=== PATIENT | male | born 1985 | race African-American/Black ===

== ENCOUNTER 2021-08-08 10:09 | Inpatient (IN) | payer SELFPAY ==
--- OUTSIDE RECORDS SUMMARY | 2021-08-08 10:16 | XMS REPORT | Continuity of Care Document ---
:1985 Author Organization [facility] t Address [facility] [address] Tony [address] [place] [id number] Care Team Providers Name Role Phone Unavailable Unavailable Unavailable Problems This patient has no known problems. Allergies, Adverse Reactions, Alerts This patient has no known allergies or adverse reactions. Medications This patient has no known medications. Procedures This patient has no known procedures. Encounters Start End Encounter Admission Attending Care Care Encounter Source Date/Time Date/Time Type Type Clinicians Facility Department ID 2018-10-07 2018-10-07 Emergency [facility] [id number] 2 Antonio 17:05:06 17:05:06 Health Results This patient has no known results.
[2021-08-08 10:38] LABS: Absolute Lymphocytes (CBC) 1.1 K/uL (0.7-4.9); Basophils % 0.1 % (0-1.3); Hematocrit 40.3 % (39.6-49.0); Lymphocytes % 4.1 % (15.3-44.8); MPV 7.6 fL (7.6-11.3); RBC Red Blood Cell Count 4.43 M/uL (4.33-5.43)
[2021-08-08] MEDS ORDERED: INSULIN -REGULAR HUMAN 50 UNIT/0.5 ML ML ONE ×5 (10:43→21:39)
[2021-08-08 11:01] LABS: Blood Morphology Comment NOT SEEN (NOT SEEN); Platelet Estimate ADEQ
[2021-08-08 11:16] LABS: BUN Blood Urea Nitrogen 23 mg/dL (7-18); Bicarbonate 15 mmol/L (21-32); Potassium 5.2 mmol/L (3.5-5.1); Sodium Level 131 mmol/L (136-145); Troponin (Emerg Dept Use Only) < 0.02 ng/mL (0.0-0.045)
[2021-08-08 11:19] LABS: Glucose Level 534 mg/dL (74-106)
[2021-08-08] MEDS ORDERED: NA CHLORIDE 0.9% 1,000 ML ONE (11:25)
[2021-08-08] MEDS ORDERED: HYDROCODONE/APAP 10/325 TAB ONE (11:25)
--- NOTE | 2021-08-08 11:47 | RAD REPORT ---
EXAM DESCRIPTION: CT - Chest For Pe Angio - 08/08/2021 11:32 am CLINICAL HISTORY: Chest pain COMPARISON: None. TECHNIQUE: Dynamically enhanced axial 3 mm thick images of the chest were obtained during administra tion of <100> mL Isovue 370 IV contrast. Coronal and oblique reconstruction images were generated and reviewed. Exam utilizes a protocol for optimal evaluation of pulmonary arterial tree. Maximum intensity projections 3D imaging was utilized All CT scans are performed using dose optimization technique as appropriate and may include automated exposure control or mA/KV adjustment according to patient size. FINDINGS: The opacification of pulmonary arteries is suboptimal. A thoracic aortic aneurysm is not noted. A pleural effusion is not seen. A pericardial effusion is not seen. 8 centimeter right upper lobe consolidation IMPRESSION: Opacification of pulmonary arteries is suboptimal. Detection for pulmonary embolus it is nondiagnostic 8 centimeter right upper lobe consolidation likely pneumonia. This should be followed until it is genie ar to help exclude a post obstructive process/underlying mass
--- NOTE | 2021-08-08 11:48 | RAD REPORT ---
EXAM DESCRIPTION: Talat Single View08/08/2021 10:48 am CLINICAL HISTORY: Chest pain COMPARISON: none FINDINGS: Right upper lobe consolidation Left lung is clear. The heart is normal size IMPRESSION: Right upper lobe consolidation likely pneumonia
[2021-08-08 12:01] LABS: Arterial Blood Carboxyhemoglob 1.4 % (0-1.5); Blood O2 Saturation 97.5 % (92-98.5)
--- NOTE | 2021-08-08 12:01 | EDPHYS ---
Physician Documentation [facility] Name: Saul Earl Age: 35 yrs Sex: Male : 1985 Arrival Date: 08/08/2021 Time: 10:11 Bed 8 Private MD: ED Physician José Gage HPI: 08/08 10:24 This 35 yrs old Black Male presents to ER via Unassigned with complaints of chest pain. rn 10:24 The patient or guardian reports chest pain that is located primarily in the anterior rn chest wall, right. The pain does not radiate. Associated signs and symptoms: Pertinent positives: cough, Pertinent negatives: abdominal pain, diaphoresis, headache, lower extremity swelling, near syncope, shortness of breath, syncope, vomiting. Associated signs and symptoms: Pertinent negatives: palpitations. The chest pain is described as sharp, stabbing. Duration: The patient or guardian reports multiple episodes, that are intermittent. Modifying factors: The symptoms are alleviated by nothing. the symptoms are aggravated by cough, deep breath, palpation of area. Severity of pain: At its worst the pain was moderate in the emergency department the pain is unchanged. The patient has not experienced similar symptoms in the past. The patient has not recently seen a physician. 10:24 Patient reports a couple days of right-sided chest pain, nonradiating, stabbing pain rn worse with deep breath and palpation. Denies any trauma. Reports productive cough. Denies fever. EMS reports normal oxygenation. Patient denies history of DVT or PE.. Historical: - Allergies: 10:27 No Known Allergies; ll3 - Home Meds: 10:27 Insulin: Novolin 70/30 40-35 U/ML Sub-Q twice a day [Active]; lisinopril 10 mg Oral tab ll3 once daily [Active]; - PMHx: 10:27 Diabetes - NIDDM; Hypertensive disorder; ll3 - Immunization history:: Client reports having NOT received the Covid vaccine. - Social history:: Smoking status: Patient reports the use of cigarette tobacco products, smokes one-half pack cigarettes per day, Patient uses street drugs, marijuana. - Family history:: not pertinent. - Hospitalizations: : No recent hospitalization is reported. ROS: 10:24 Constitutional: Negative for fever, chills, and weight loss, Eyes: Negative for injury, rn pain, redness, and discharge, Neck: Negative for injury, pain, and swelling, Cardiovascular: Negative for palpitations, and edema, Respiratory: Negative for shortness of breath, wheezing Abdomen/GI: Negative for abdominal pain, nausea, vomiting, diarrhea, and constipation, Back: Negative for injury and pain, : Negative for injury, bleeding, discharge, and swelling, MS/Extremity: Negative for injury and deformity, Skin: Negative for injury, rash, and discoloration, Neuro: Negative for headache, weakness, numbness, tingling, and seizure. Exam: 10:24 Constitutional: This is a well developed, well nourished patient who is awake, alert, rn and in no acute distress. Head/Face: Normocephalic, atraumatic. Eyes: Periorbital areas with no swelling, redness, or edema. Cardiovascular: Regular rate and rhythm with a normal S1 and S2. No gallops, murmurs, or rubs. Normal PMI, no JVD. No pulse deficits. Respiratory: No increased work of breathing, no retractions or nasal flaring. Abdomen/GI: Soft, non-tender Skin: Warm, dry MS/ Extremity: Pulses equal, no cyanosis. Neuro: Awake and alert, GCS 15 Vital Signs: 10:18 BP 154 / 92; Pulse 98; Resp 18; Temp 99.7(O); Pulse Ox 100% ; Weight 70.31 kg (R); ll3 Height 5 ft. 10 in. (177.80 cm) (R); Pain 8/10; 10:18 Body Mass Index 22.24 (70.31 kg, 177.80 cm) ll3 MDM: 10:12 Patient medically screened. rn 11:56 Differential diagnosis: acute pericarditis, chest wall pain, costochondritis, rn esophagitis, pleurisy, pneumonia, pneumothorax, pulmonary embolus. Data reviewed: vital signs, nurses notes, lab test result(s), EKG, radiologic studies, CT scan, plain films, and as a result, I will admit patient. Data interpreted: electronic device monitor: rate is 98 beats/min, rhythm is normal sinus rhythm, regular, with no ectopy, Interpretation: normal rate, normal rhythm, Pulse oximetry: on room air is 100 %. Interpretation: normal. Counseling: I had a detailed discussion with the patient and/or guardian regarding: the historical points, exam findings, and any diagnostic results supporting the discharge/admit diagnosis, lab results, radiology results, the need for further work-up and treatment in the hospital. Response to treatment: the patient's symptoms have mildly improved after treatment, and as a result, I will admit patient. Admission orders: after a detailed discussion of the patient's condition and case, the admit orders are written by me. 08/08 10:13 Order name: CBC with Diff; Complete Time: 11:17 rn 08/08 10:13 Order name: Basic Metabolic Panel; Complete Time: 11:32 rn 08/08 10:13 Order name: SARS-COV-2 RT PCR (Document "Date of Onset" if Symptomatic); Complete Time: rn 11:37 08/08 10:13 Order name: Troponin (emerg Dept Use Only); Complete Time: 11:32 08/08 10:36 Order name: Glucose, Ancillary Testing; Complete Time: 10:38 EDNJ 08/08 11:01 Order name: Manual Differential; Complete Time: 11:17 [facility] 08/08 11:21 Order name: ABG 08/08 11:21 Order name: Blood Culture Adult (2) 08/08 11:21 Order name: Procalcitonin; Complete Time: 17:58 08/08 11:21 Order name: Ketone, Serum; Complete Time: 17:58 08/08 12:50 Order name: Glucose, Ancillary Testing [facility] 08/08 13:06 Order name: Hemoglobin A1c [facility] 08/08 13:06 Order name: Hemoglobin A1c [facility] 08/08 10:13 Order name: XRAY Chest (1 view); Complete Time: 11:51 rn 13 10:13 Order name: CT Chest For PE Angio; Complete Time: 11:51 rn 13 13:08 Order name: Urinalysis; Complete Time: 17:58 EDNJ 08/08 13:22 Order name: Basic Metabolic Panel [facility] 08/08 13:22 Order name: Basic Metabolic Panel; Complete Time: 17:58 EDN[facility] 08/08 13:22 Order name: Basic Metabolic Panel [facility] 08/08 13:22 Order name: Basic Metabolic Panel [facility] 08/08 14:49 Order name: Glucose, Ancillary Testing; Complete Time: 17:58 EDN[facility] 08/08 14:56 Order name: Glucose, Ancillary Testing; Complete Time: 17:58 EDNJ 08/08 16:32 Order name: Glucose, Ancillary Testing; Complete Time: 17:58 EDNJ 08/08 17:54 Order name: Glucose, Ancillary Testing; Complete Time: 17:58 EDNJ 08/08 18:45 Order name: Glucose, Ancillary Testing EDN[facility] 08/08 20:03 Order name: Glucose, Ancillary Testing EDN[facility] 08/08 21:39 Order name: Glucose, Ancillary Testing EDN[facility] 08/08 10:13 Order name: IV Start; Complete Time: 10:18 rn 08/08 10:13 Order name: EKG; Complete Time: 10:14 rn 08/08 10:13 Order name: EKG - Nurse/Tech; Complete Time: 10:36 rn 08/08 13:07 Order name: NPO EDMS Administered Medications: 10:50 Drug: Insulin Regular Human 10 units {Co-Signature: iw (Indiana Garcia RN).} Route: ll3 IVP; Site: left antecubital; 12:41 Follow up: Response: No adverse reaction iw 10:50 Drug: Insulin Regular Human 10 units {Co-Signature: iw (Indiana Garcia RN).} Route: ll3 Sub-Q; Site: abdomen; 12:41 Follow up: Response: No adverse reaction iw 12:00 Drug: [place] (HYDROcodone-acetaminophen) 10 mg-325 mg 1 tabs Route: PO; iw 12:41 Follow up: Response: No adverse reaction; Pain is decreased iw 12:01 Drug: NS 0.9% 1000 ml Route: IV; Rate: 1000 ml; Site: left antecubital; ll3 12:40 Drug: Rocephin (cefTRIAXone) 1 grams Route: IV; Rate: calculated rate; Site: right iw antecubital; 14:20 Follow up: Response: No adverse reaction iw 12:40 Drug: Zithromax (azithromycin) 500 mg Route: IVPB; Infused Over: 1 hrs; Site: left iw antecubital; 13:14 Not Given (Dr. Chirag Gage d/c order): Insulin Drip - (Insulin Regular Human 100 units, NS iw 0.9% 100 ml) IV at calculated rate continuous; Standard concentration 1unit/ml; Dose for DKA is 0.1 units/kg/hr Disposition: 11:56 Critical Care:. rn Disposition Summary: 08/08/21 12:00 Hospitalization Ordered Hospitalization Status: Inpatient Admission rn Provider: John Gage rn Condition: Stable rn Problem: new rn Symptoms: have improved rn Bed/Room Type: Standard rn Location: Telemetry/MedSurg (Inpatient)(08/08/21 22:37) cg Room Assignment: 205(08/08/21 22:46) cg Diagnosis - Diabetes mellitus due to underlying condition with ketoacidosis without coma rn - Pneumonia, unspecified organism rn - Pleurisy rn Forms: - Medication Reconciliation Form rn - SBAR form sales and marketing intern time excluding procedures: 11:56 Critical care time: Bedside Care: 30 minutes, Consultation: 5 minutes. Total time: 35 rn minutes Signatures: Dispatcher [employer] EDMS Narinder Hernandez PA PA jmm Williams, Irene RN RN José Gage MD MD rn Garcia, Cindy RN RN Wero Del Rosario RN RN Arti Andrade RN RN 3 Indiana Garcia RN Corrections: (The following items were deleted from the chart) 13:12 12:00 Intensive Care Unit rn ja1 13:12 12:00 rn ja1 13:21 13:07 Basic Metabolic Panel ordered. EDMS EDMS 13:22 13:07 Basic Metabolic Panel ordered. EDMS EDMS 13:22 13:07 Basic Metabolic Panel ordered. EDMS EDMS 22:37 13:12 [facility] ER HOLD ja1 cg 22:37 13:12 ERHOLD- ja1 cg 22:46 22:37 cg cg
--- NOTE | 2021-08-08 12:01 | ER ---
Nurse's Notes [facility] Name: Saul Earl Age: 35 yrs Sex: Male : 1985 Arrival Date: 08/08/2021 Time: 10:11 Bed 8 Private MD: Diagnosis: Diabetes mellitus due to underlying condition with ketoacidosis without coma;Pneumonia, unspecified organism;Pleurisy Presentation: 08/08 10:18 Chief complaint: Patient states: I have been coughing so much that it hurts when I ll3 breath, C/O right sided pain when breathing. Coronavirus screen: cough unrelated to allergies, muscle pain. Ebola Screen: No symptoms or risks identified at this time. Initial Sepsis Screen: Does the patient meet any 2 criteria? HR > 90 bpm. Yes No. Patient's initial sepsis screen is negative. Does the patient have a suspected source of infection? No. Patient's initial sepsis screen is negative. Risk Assessment: Do you want to hurt yourself or someone else? Patient reports no desire to harm self or others. Onset of symptoms was August 05, 2021. Care prior to arrival: Medication(s) given: Motrin, IV initiated. 20 GA, in the left antecubital area, Glucose check: 500. 10:18 Method Of Arrival: EMS: [facility] ll3 10:18 Acuity: IRLANDA 3 ll3 10:18 Care prior to arrival: EMS states their glucose machine states above 500, preformed ll3 blood draw and sent to lab. 10:18 Transition of care: patient was not received from another setting of care. ll3 10:42 Acuity: IRLANDA 2 ll3 Triage Assessment: 10:27 General: Appears in no apparent distress. uncomfortable, Behavior is calm, cooperative. ll3 Pain: Complains of pain in anterior aspect of right upper chest and right breast Pain radiates to right lateral anterior chest and right lateral posterior chest Pain currently is 8 out of 10 on a pain scale. Quality of pain is described as stabbing, Pain began 2-3 days ago. Is continuous, Noted to be guarding, Also complains of Pain is increased when coughing or breathing. Neuro: Level of Consciousness is awake, alert, obeys commands, Oriented to person, place, time, situation, Speech is normal, Facial symmetry appears normal. Cardiovascular: Patient's skin is warm and dry. Respiratory: Airway is patent Respiratory effort is even, unlabored, Respiratory pattern is regular, symmetrical, Breath sounds are clear bilaterally. Denies shortness of breath Parent/caregiver reports the patient having pain with respiration pain with cough. Derm: Skin is normal. Historical: - Allergies: 10:27 No Known Allergies; ll3 - Home Meds: 10:27 Insulin: Novolin 70/30 40-35 U/ML Sub-Q twice a day [Active]; lisinopril 10 mg Oral tab ll3 once daily [Active]; - PMHx: 10:27 Diabetes - NIDDM; Hypertensive disorder; ll3 - Immunization history:: Client reports having NOT received the Covid vaccine. - Social history:: Smoking status: Patient reports the use of cigarette tobacco products, smokes one-half pack cigarettes per day, Patient uses street drugs, marijuana. - Family history:: not pertinent. - Hospitalizations: : No recent hospitalization is reported. Screenin:34 Abuse screen: Denies threats or abuse. Nutritional screening: No deficits noted. ll3 Tuberculosis screening: No symptoms or risk factors identified. Fall Risk IV access (20 points). Mental Status- Oriented to own ability (0 pts). Total Murphy Fall Scale indicates No Risk (0-24 pts). Assessment: 10:34 General: See triage. ll3 Vital Signs: 10:18 BP 154 / 92; Pulse 98; Resp 18; Temp 99.7(O); Pulse Ox 100% ; Weight 70.31 kg (R); ll3 Height 5 ft. 10 in. (177.80 cm) (R); Pain 8/10; 10:18 Body Mass Index 22.24 (70.31 kg, 177.80 cm) ll3 ED Course: 10:11 Patient arrived in ED. rn 10:12 José Gage MD is Attending Physician. rn 10:18 Arti Genao RN is Primary Nurse. ll3 10:25 Triage completed. ll3 10:27 Arm band placed on. ll3 10:34 Patient has correct armband on for positive identification. Placed in gown. Bed in low ll3 position. Call light in reach. Side rails up X 1. 10:34 Initial lab(s) drawn, by ED staff, sent to lab. EKG done, by ED staff, COVID swab sent ll3 to lab. Maintain EMS IV. Dressing intact. Good blood return noted. Site clean \T\ dry. Gauge \T\ site: 20 G LAC. 10:48 XRAY Chest (1 view) In Process Unspecified. EDMS 11:33 CT Chest For PE Angio In Process Unspecified. EDMS 12:00 John Gage MD is Hospitalizing Provider. rn 19:20 Primary Nurse role handed off by Arti Genao RN tw5 19:20 Giovana Norris is Primary Nurse. tw5 Administered Medications: 10:50 Drug: Insulin Regular Human 10 units {Co-Signature: iw (Indiana Garcia RN).} Route: ll3 IVP; Site: left antecubital; 12:41 Follow up: Response: No adverse reaction iw 10:50 Drug: Insulin Regular Human 10 units {Co-Signature: iw (Indiana Garcia RN).} Route: ll3 Sub-Q; Site: abdomen; 12:41 Follow up: Response: No adverse reaction iw 12:00 Drug: Lulu (HYDROcodone-acetaminophen) 10 mg-325 mg 1 tabs Route: PO; iw 12:41 Follow up: Response: No adverse reaction; Pain is decreased iw 12:01 Drug: NS 0.9% 1000 ml Route: IV; Rate: 1000 ml; Site: left antecubital; ll3 12:40 Drug: Rocephin (cefTRIAXone) 1 grams Route: IV; Rate: calculated rate; Site: right iw antecubital; 14:20 Follow up: Response: No adverse reaction iw 12:40 Drug: Zithromax (azithromycin) 500 mg Route: IVPB; Infused Over: 1 hrs; Site: left iw antecubital; 13:14 Not Given (Dr. Chirag Gage d/c order): Insulin Drip - (Insulin Regular Human 100 units, NS iw 0.9% 100 ml) IV at calculated rate continuous; Standard concentration 1unit/ml; Dose for DKA is 0.1 units/kg/hr Outcome: 12:00 Decision to Hospitalize by Provider. rn 23:48 Patient left the ED. lp1 Signatures: Dispatcher [employer] Indiana Lr RN RN iw José Gage MD MD rn Pena, Laura, RN RN lp1 Giovana Norris tw5 Arti Genao RN RN ll3 Indiana Garcia RN iw
[2021-08-08] MEDS ORDERED: CEFTRIAXONE 1000 MG/VIAL ONE (12:15)
[2021-08-08] MEDS ORDERED: AZITHROMYCIN 500 MG INJ IVPB ONE (12:16)
[2021-08-08] MEDS ORDERED: NA CHLORIDE 0.9% 250 ML ONE (12:16)
[2021-08-08] MEDS ORDERED: INSULIN -REGULAR HUMAN 100 UNIT in NA CHLORIDE 0.9% 100 ML IV SCH (13:00)
[2021-08-08] MEDS ORDERED: ACETAMINOPHEN 500 MG TAB PO PRN (13:04)
[2021-08-08] MEDS ORDERED: ONDANSETRON 4 MG/2 ML VIAL IV PRN (13:06)
[2021-08-08] MEDS: NACHLORIDE 0.45% 1,000 ML IV SCH ×3 (13:06→21:06)
--- NOTE | 2021-08-08 13:07 | P.HP ---
Certification for Inpatient Patient admitted to: Inpatient With expected LOS: >2 Midnights Practitioner: I am a practitioner with admitting privileges, knowledge of patient current condition, hospital course, and medical plan of care. Services: Services provided to patient in accordance with Admission requirements found in Title 42 Section 412.3 of the Code of Federal Regulations Patient History Date of Service: 08/08/21 Reason for admission: Pneumonia, DKA History of Present Illness: 35-year-old male, PMH: Insulin-dependent DM 2, hypertension Patient presents to ED with 2-3 days of productive cough, shortness of breath, right-sided chest pain. Chest pain is sharp in nature, occurs with certain movements, with deep inspiration, and cough. Denies any recent sick contacts. He has not been vaccinated for Covid, denies any prior Covid infection. Nothing in particular seems to relieve the pain other than pain medication given in the ED. Patient also reports not feeling well in general, and feels like his sugar is high. In the ED, his blood glucose level was noted to be greater than 500, acidotic, consistent with DKA. Chest x-ray and CT concerning for right upper lobe infiltrate/pneumonia. Also found to have a mildly elevated creatinine. ED physician administered 10 IV and 10 subcu insulin, antibiotics, and IV fluids. Patient reports already feeling somewhat better. He has not been taking his insulin as he should be. He states he is mostly diet controlled but has been needing 30-40 units of insulin 70/30. He recently moved and has not established with a new physician yet. He has not taken his insulin today since he did not feel well and came to the ER. ED physician requested admission for further management of his pneumonia and DKA. Allergies No Known Allergies Allergy (Unverified 06/07/17 16:14) Home Medications: Insulin 70/30 NPH/Reg Human [Novolin 70/30*] 30 units SQ BID #10 ml 06/08/17 lisinopriL [Prinivil*] 10 mg PO BID #60 tab 06/08/17 - Past Medical/Surgical History Diabetic: Yes -: IDDM -: Hypertension Past Surgical History: Patient denies surgical history - Family History Family History: Reviewed- Non-Contributory - Family History Father Notes: bipolar- - Social History Smoking Status: Current every day smoker (1/2 ppd x ~15yrs) Alcohol use: Yes CD- Drugs: Yes Caffeine use: Yes Place of Residence: Home Review of Systems 10-point ROS is otherwise unremarkable Physical Examination - Physical Exam General: Alert, Oriented x3 HEENT: PERRLA, EOMI, Sclerae nonicteric Neck: Supple, No LAD Respiratory: Crackles/rales (Right upper lung), Other (Shallow respirations, nonlabored) Cardiovascular: No edema, Regular rate/rhythm, No murmurs Gastrointestinal: Soft and benign, Non-distended, No tenderness Musculoskeletal: No erythema, No tenderness Integumentary: No rashes, No significant lesion Neurological: Normal speech, Normal strength at 5/5 x4 extr, Normal affect - Studies Laboratory Data (last 24 hrs) 08/08/21 10:20: Sodium 131 L, Potassium 5.2 H, BUN 23 H, Creatinine 1.54 H, Gl ucose 534 H* 08/08/21 10:20: WBC 26.20 H*, Hgb 12.9 L, Hct 40.3, Plt Count 227 Assessment and Plan - Advance Directives Does patient have a Living Will: No Does patient have a Durable POA for Healthcare: No Physician Review Additional Text: Problem list Community acquired pneumonia, patient without sepsis Anion gap metabolic acidosis secondary to DKA Severe hyperglycemia, DKA, history of IDDM2 RADHA, no history of CKD Hypertension Hyperkalemia, mild Patient presents with DKA, mild, without coma Received 10 IV and 10 subcutaneous insulin, glucose from over 500 down to 360 Patient without nausea/vomiting, reports he is hungry/thirsty, alert and oriented x3 and appropriate Admit to ICU for close monitoring, every hour glucose checks Hold off on insulin drip, will follow Accu-Cheks every hour BMP every 4 hours IV fluid, 250/hour for now, follow-up BMPs, currently with anion gap Sodium within normal limits once corrected for hyperglycemia Mild hyperkalemia, will monitor as this will drop with insulin, may need to add potassium to IV fluids RADHA secondary to DKA/dehydration, should correct with IV fluids Community-acquired pneumonia, suspect bacterial etiology, continue empiric treatment with Rocephin and azithromycin Ice chips and sips of water for now, will await for glucose to be better controlled prior to advancing diet, suspect can be advanced for dinner Leukocytosis secondary to DKA and pneumonia VTE: lovenox Code: full Dispo: Anticipate DC home in ~2 days Time Spent Managing Pts Care (In Minutes): 60
[2021-08-08] MEDS: INSULIN -REGULAR HUMAN 50 UNIT/0.5 ML ML SQ SCH ×9 (14:15→21:15)
[2021-08-08 14:24] LABS: Potassium 4.6 mmol/L (3.5-5.1)
[2021-08-08 14:35] VITALS: BMI 22.2
[2021-08-08] MEDS ORDERED: NACHLORIDE 0.45% 1,000 ML IV ONE ×2 (15:10→17:57)
[2021-08-08 15:28] LABS: Urine Appearance CLEAR (Clear); Urine Bilirubin NEGATIVE (Negative); Urine Blood NEGATIVE (Negative); Urine Color YELLOW (Yellow); Urine Glucose 3+ (Negative); Urine Protein NEGATIVE (Negative); Urine Specific Gravity >=1.030 (1.005-1.030); Urine Urobilinogen 0.2 mg/dL (0.2-1.0); Urine pH 5.5 (5.0-7.0)
[2021-08-08 15:31] LABS: Urine Microscopic Reflex NO UMIC
[2021-08-08] MEDS ORDERED: INSULIN -REGULAR HUMAN 50 UNIT/0.5 ML ML IV SCH (16:30)
[2021-08-08] MEDS ORDERED: INSULIN 70/30 100 UNITS/ML SQ ONE (17:22)
[2021-08-08] MEDS ORDERED: TRAMADOL HCL 50 MG TAB ONE (17:58)
[2021-08-08] MEDS: TRAMADOL HCL 50 MG TAB PO PRN (18:04)
[2021-08-08] MEDS: INSULIN 70/30 100 UNITS/ML SQ SCH (18:05)
[2021-08-08 18:11] LABS: Potassium 4.5 mmol/L (3.5-5.1)
[2021-08-08] MEDS ORDERED: GLUCAGON 1 MG/VIAL IM PRN (21:33)
[2021-08-08] MEDS ORDERED: D50W 25 GM/50 ML SYRINGE IV PRN (21:33)
[2021-08-08 22:24] LABS: BUN Blood Urea Nitrogen 16 mg/dL (7-18); Bicarbonate 26 mmol/L (21-32); Glucose Level 339 mg/dL (74-106); Potassium 4.2 mmol/L (3.5-5.1); Sodium Level 133 mmol/L (136-145)
[2021-08-09] MEDS: TRAMADOL HCL 50 MG TAB PO PRN ×4 (00:02→18:02)
[2021-08-09 06:13] LABS: Absolute Lymphocytes (CBC) 0.9 K/uL (0.7-4.9); Basophils % 0.2 % (0-1.3); Hematocrit 36.7 % (39.6-49.0); MPV 7.3 fL (7.6-11.3); RBC Red Blood Cell Count 4.16 M/uL (4.33-5.43)
[2021-08-09 06:25] LABS: BUN Blood Urea Nitrogen 12 mg/dL (7-18); Bicarbonate 26 mmol/L (21-32); Glucose Level 346 mg/dL (74-106); Magnesium 1.9 mg/dL (1.8-2.4); Phosphorus 1.6 mg/dL (2.5-4.9); Sodium Level 131 mmol/L (136-145)
[2021-08-09 06:57] LABS: Blood Morphology Comment NOT SEEN (NOT SEEN); Platelet Estimate ADEQ; White Blood Cell Scan OK (OK)
[2021-08-09] MEDS: INSULIN -REGULAR HUMAN 50 UNIT/0.5 ML ML SQ SCH ×4 (08:20→21:41)
[2021-08-09] MEDS: ENOXAPARIN 40 MG/0.4 ML SQ SCH (08:21)
[2021-08-09] MEDS ORDERED: CEFTRIAXONE 1000 MG/VIAL ONE ×2 (09:47→10:12)
[2021-08-09] MEDS ORDERED: NA CHLORIDE 0.9% 50 ML ONE ×2 (09:50→10:14)
[2021-08-09] MEDS: INSULIN 70/30 100 UNITS/ML SQ SCH ×2 (10:14→17:23)
[2021-08-09] MEDS: CEFTRIAXONE 1,000 MG in NA CHLORIDE 0.9% 50 ML IVPB SCH (10:15)
--- NOTE | 2021-08-09 12:29 | EKG ---
Test Date: 2021-08-08 Test Time: 10:35:28 Biomedical Engineering Technician: MARY MEASUREMENT RESULTS: Intervals: Rate: 109 DC: 132 QRSD: 96 QT: 350 QTc: 471 [place]: P: 86 DC: 132 QRS: 88 T: 75 INTERPRETIVE STATEMENTS: Sinus tachycardia Incomplete right bundle branch block Cannot rule out Anterior infarct, age undetermined Abnormal ECG Compared to ECG 06/07/2017 14:19:07 Incomplete right bundle-branch block now present Myocardial infarct finding now present Sinus rhythm no longer present Electronically Signed On 08-09-21 12:25:55 DINING SERVICES DIRECTOR by Peterson Villegas
--- NOTE | 2021-08-09 15:21 | P.PN ---
Subjective Date of Service: 08/09/21 Chief Complaint: Pneumonia, DKA Patient states he is feeling better today. He is tolerating his food. Afebrile. Leukocytosis is trending down. Blood sugar readings are elevated. Physical Examination - Vital Signs Temperature: 99.3 F Blood Pressure: 154/93 Pulse: 93 Respirations: 20 Pulse Ox (%): 96 Assessment And Plan - Plan Physical examination General: Alert, Oriented x3 HEENT: Sclerae nonicteric Neck: Supple, No LAD Respiratory: Crackles/rales (Right upper lung), Cardiovascular: No edema, Regular rate/rhythm, No murmurs Gastrointestinal: Soft and benign, Non-distended, No tenderness Musculoskeletal: No erythema, No tenderness Integumentary: No rashes, No significant lesion Neurological: Normal speech, Normal strength at 5/5 x4 extr, Normal affect Problem list Community acquired pneumonia, patient without sepsis Anion gap metabolic acidosis secondary to DKA Severe hyperglycemia, DKA, history of IDDM2 RADHA, no history of CKD Hypertension Hyperkalemia, mild Patient presents with mild DKA without coma. Received 10 IV and 10 subcutaneous insulin. Also received IV fluids. DKA resolved. Blood sugar now being managed with Novolin 70/30 and insulin sliding scale. Titrated Novolin 70/30 to 15 units twice daily. Patient is tolerating his food. IV fluid discontinued. Acute renal failure resolved. Hyperkalemia corrected Community-acquired pneumonia, suspect bacterial etiology, continue empiric treatment with Rocephin and azithromycin Leukocytosis is trending down. Blood cultures: No growth to date. Continue to monitor CBC and follow blood cultures.
[2021-08-09] MEDS ORDERED: AZITHROMYCIN IV 500 MG in NA CHLORIDE 0.9% 250 ML IVPB SCH (17:00)
[2021-08-10 00:52] VITALS: O2SAT 98
[2021-08-10 06:38] LABS: Absolute Lymphocytes (CBC) 1.4 K/uL (0.7-4.9); Basophils % 0.6 % (0-1.3); Hematocrit 36.2 % (39.6-49.0); Lymphocytes % 18.5 % (15.3-44.8); MPV 7.4 fL (7.6-11.3); RBC Red Blood Cell Count 4.11 M/uL (4.33-5.43)
[2021-08-10 06:51] LABS: BUN Blood Urea Nitrogen 9 mg/dL (7-18); Bicarbonate 30 mmol/L (21-32); Glucose Level 199 mg/dL (74-106); Magnesium 2.2 mg/dL (1.8-2.4); Phosphorus 2.9 mg/dL (2.5-4.9); Potassium 3.9 mmol/L (3.5-5.1); Sodium Level 140 mmol/L (136-145)
[2021-08-10] MEDS ORDERED: CEFTRIAXONE 1000 MG/VIAL ONE (07:30)
[2021-08-10] MEDS ORDERED: NA CHLORIDE 0.9% 50 ML ONE (07:33)
[2021-08-10] MEDS: INSULIN 70/30 100 UNITS/ML SQ SCH (07:59)
[2021-08-10] MEDS: INSULIN -REGULAR HUMAN 50 UNIT/0.5 ML ML SQ SCH (07:59)
[2021-08-10] MEDS: CEFTRIAXONE 1,000 MG in NA CHLORIDE 0.9% 50 ML IVPB SCH (08:00)
[2021-08-10] MEDS: ENOXAPARIN 40 MG/0.4 ML SQ SCH (08:00)
--- NOTE | 2021-08-10 08:45 | P.DS ---
Admission Date: 08/08/21 Discharge Date: 08/10/21 Disposition: ROUTINE DISCHARGE Discharge Condition: FAIR Reason for Admission: Pneumonia, DKA - Problems (1) Pneumonia Status: Acute (2) DKA, type 1 Onset Date: 06/08/17 Status: Acute (3) Hyponatremia Onset Date: 06/08/17 Status: Acute Brief History of Present Illness: 35-year-old male, PMH: Insulin-dependent DM 2, hypertension Patient presents to ED with 2-3 days of productive cough, shortness of breath, right-sided chest pain. Chest pain scribed as pleuritic. He has not been vaccinated for Covid, denies any prior Covid infection. In the ED, his blood glucose level was noted to be greater than 500, acidotic, consistent with DKA. Chest x-ray and CT concerning for right upper lobe infiltrate/pneumonia. Also found to have a mildly elevated creatinine. ED physician administered 10 IV and 10 subcu insulin, antibiotics, and IV fluids. Patient also reported noncompliance with his insulin. He states he is mostly diet controlled but has been needing 30-40 units of insulin 70/30. He recently moved and has not established with a new physician yet. Patient admitted for further management of pneumonia and DKA. Hospital Course: Patient admitted to the medical floor and treated for pneumonia with IV Rocephin and Zithromax. Patient was on insulin drip briefly his metabolic acidosis resolved and was transitioned to subcutaneous insulin. Blood sugar was later managed with Novolin 70/30 and insulin sliding scale. Patient had severe leukocytosis which resolved with antibiotics. He clinically improved with treatment, had no fever and tolerated his first. Patient has clinically improved and deemed stable for discharge. He discharged with Augmentin to continue treatment for the pneumonia. He had RADHA which resolved with IV hydration. Vital Signs/Physical Exam: Temp Pulse Resp BP Pulse Ox 97.6 F 77 18 141/89 H 97 08/10/21 04:00 08/10/21 04:00 08/10/21 04:00 08/10/21 04:00 08/10/21 04:00 General: Alert, In no apparent distress, Oriented x3 HEENT: Mucous membr. moist/pink, Sclerae nonicteric Neck: Supple, JVD not distended Respiratory: Clear to auscultation bilaterally, Normal air movement Cardiovascular: No edema, Regular rate/rhythm, Normal S1 S2 Gastrointestinal: Normal bowel sounds, Soft and benign, Non-distended, No tenderness Musculoskeletal: No swelling Integumentary: No rashes Neurological: Normal speech, Normal strength at 5/5 x4 extr Laboratory Data at Discharge: WBC 7.50 K/uL (4.3-10.9) D 08/10/21 06:02 Hgb 12.0 g/dL (13.6-17.9) L 08/10/21 06:02 Hct 36.2 % (39.6-49.0) L 08/10/21 06:02 Plt Count 200 K/uL (152-406) 08/10/21 06:02 Sodium 140 mmol/L (136-145) 08/10/21 06:02 Potassium 3.9 mmol/L (3.5-5.1) 08/10/21 06:02 BUN 9 mg/dL (7-18) 08/10/21 06:02 Creatinine 0.82 mg/dL (0.55-1.3) 08/10/21 06:02 Glucose 199 mg/dL (74-106) H 08/10/21 06:02 Phosphorus 2.9 mg/dL (2.5-4.9) D 08/10/21 06:02 Magnesium 2.2 mg/dL (1.8-2.4) 08/10/21 06:02 Home Medications: Insulin 70/30 NPH/Reg Human [Novolin 70/30*] 35 units SQ BID 08/08/21 lisinopriL [Prinivil*] 10 mg PO DAILY 08/08/21 Amox/Clavulanate [Augmentin 875-125 Tab] 1 each PO BID #14 tab 08/10/21 New Medications: Amox/Clavulanate [Augmentin 875-125 Tab] 1 each PO BID #14 tab Diet: ADA Activity: Ad bethany Followup: MARCI COVARRUBIAS [Primary Care Provider] - 1-2 Weeks Time spent managing pt's care (in minutes): 38
[2021-08-10 09:12] VITALS: BP 148/99; TEMP 98.5
== END 2021-08-10 10:50 | disposition home or self-care (01) | DRG 637 ==
LOC: ER 10:09 → ERHOLD 13:22 → 2ND 23:10
PROVIDERS: ADMIT Hospitalist; ATTEND Internal Medicine
DX: E10.10 Type 1 diabetes mellitus with ketoacidosis without coma (principal); J18.9 Pneumonia, unspecified organism; N17.9 Acute kidney failure, unspecified; E87.1 Hypo-osmolality and hyponatremia; F17.210 Nicotine dependence, cigarettes, uncomplicated; E87.5 Hyperkalemia; E86.0 Dehydration; I10 Essential (primary) hypertension; T38.3X6A Underdosing of insulin and oral hypoglycemic [antidiabetic] drugs, initial encounter; Z79.4 Long term (current) use of insulin; Z91.14 Patient's other noncompliance with medication regimen; Z79.899 Other long term (current) drug therapy; Z20.822 Contact with and (suspected) exposure to COVID-19
CPT/HCPCS: 36415; 71045; 71275; 80048; 81003; 82010; 82805; 82947; 83036; 83735; 84100; 84145; 84484; 85025; 87040; 93005; 96372; 99284; J0456; J1650; J1815; J7030; J7050; Q9967; U0003